=== PATIENT | female | born 1985 | race Asian ===

== ENCOUNTER 2016-12-22 16:48 | Emergency (ER) | payer OTHER ==
[2016-12-22 17:27] LABS: BASOPHIL% 0.3 % (0-2.5); EOSINOPHIL# 0.1 X10e3 (0-0.7); HEMATOCRIT 34.4 % (35.0-45.0); HEMOGLOBIN 11.4 gm/dL (12.0-16.0); LYMPHOCYTE# 2.1 X10e3 (1.0-3.5); LYMPHOCYTE% 23.6 % (17.0-45.0); MEAN CELL VOLUME 59.7 FL (83-96); MEAN CORPUSCULAR HEMOGLOBIN 19.8 PG (28-34); MEAN CORPUSCULAR HGB CONC 33.2 g/dL (30-36); MEAN PLATELET VOLUME 9.7 FL (6.5-11.5); MONOCYTE# 0.6 X10e3 (0-1.0); MONOCYTE% 6.5 % (3.0-12.0); NEUTROPHIL# 6.1 X10e3 (1.5-7.1); NEUTROPHIL% 68.6 % (40-75); PLATELET COUNT 192 X10e3 (140-420); RED BLOOD COUNT 5.76 X10e (3.90-5.30); RED CELL DISTRIBUTION WIDTH 15.2 % (11.0-15.5); WHITE BLOOD COUNT 8.9 X10e3 (4.0-10.5)
[2016-12-22 17:28] LABS: DIFF IND YES
[2016-12-22 17:46] LABS: URINE SOURCE CLEAN CATCH
[2016-12-22 17:54] LABS: ALBUMIN SERUM 4.7 g/dL (3.5-5.0); ALKALINE PHOSPHATASE 53 U/L (32-92); ALT (SGPT) 18 U/L (10-40); AST (SGOT) 20 U/L (10-42); BILIRUBIN, DIRECT 0.1 mg/dL (0.0-0.2); BILIRUBIN,INDIRECT 0.7 mg/dL (0.0-0.9); BILIRUBIN,TOTAL 0.8 mg/dL (0.2-2.0); BLOOD UREA NITROGEN 12 mg/dL (9-23); CALCIUM SERUM 8.9 mg/dL (8.4-10.2); CARBON DIOXIDE 23 mmol/L (22-31); CHLORIDE 102 mmol/L (100-111); CREATININE SERUM 0.5 mg/dL (0.6-1.4); GLOM FILT RATE Estimated ABOVE60 mL/min (>60); GLUCOSE FASTING 75 mg/dL (70-110); LIPASE 18 U/L (22-51); POTASSIUM 3.7 mmol/L (3.5-5.1); PROTEIN TOTAL SERUM 8.5 g/dL (6.0-8.3); SODIUM 133 mmol/L (135-145)
[2016-12-22 18:00] LABS: URINE APPEARANCE CLOUDY; URINE BILIRUBIN NEG (NEG); URINE BLOOD NEG (NEG); URINE COLOR DK YELLOW; URINE GLUCOSE NEG (NEG); URINE KETONE 2+ (NEG); URINE LEUKOCYTE ESTERASE TRACE (NEG); URINE NITRATE NEG (NEG); URINE PH 5.5 (5-8); URINE PROTEIN NEG (NEG); URINE SPECIFIC GRAVITY 1.033 (1.003-1.035); URINE UROBILINOGEN 0.2 MG/DL (NEG)
[2016-12-22 18:02] LABS: CULTURE INDICATED? YES; URINE BACTERIA AUWI 2+ (NEGATIVE); URINE SQUAMOUS EPITHELIAL CELL MOD /[HPF]
[2016-12-22 18:18] LABS: PLATELET ESTIMATE NORMAL (NORMAL)
[2016-12-22 18:19] LABS: ANISOCYTOSIS MOD; POIKILOCYTOSIS SL
[2016-12-22 18:20] LABS: TARGET CELLS MOD
== END 2016-12-22 20:46 | disposition home or self-care (01) ==
LOC: CED 16:48
PROVIDERS: Emergency Medicine
DX: O23.11 Infections of bladder in pregnancy, first trimester (principal); Z98.890 Other specified postprocedural states
CPT/HCPCS: 36415; 80048; 80076; 81003; 83690; 84703; 85025; 87086; 96361; 96374; 96375; 99284; J2550

== ENCOUNTER 2017-01-18 11:35 | Emergency (ER) | payer OTHER ==
[2017-01-18 11:31] LABS: URINE SOURCE CLEAN CATCH
[2017-01-18 11:43] LABS: URINE APPEARANCE CLEAR; URINE BILIRUBIN NEG (NEG); URINE BLOOD NEG (NEG); URINE COLOR YELLOW; URINE GLUCOSE NEG (NEG); URINE KETONE 3+ (NEG); URINE LEUKOCYTE ESTERASE NEG (NEG); URINE NITRATE NEG (NEG); URINE PROTEIN 1+ (NEG); URINE SPECIFIC GRAVITY 1.023 (1.003-1.035)
[2017-01-18 11:46] LABS: CULTURE INDICATED? YES; URINE BACTERIA AUWI 1+ (NEGATIVE); URINE SQUAMOUS EPITHELIAL CELL FEW /[HPF]
[2017-01-18 12:06] LABS: BASOPHIL% 0.3 % (0-2.5); EOSINOPHIL% 0.4 % (0.0-7.0); HEMATOCRIT 37.4 % (35.0-45.0); LYMPHOCYTE# 1.3 X10e3 (1.0-3.5); LYMPHOCYTE% 17.1 % (17.0-45.0); MEAN CELL VOLUME 61.8 FL (83-96); MEAN CORPUSCULAR HEMOGLOBIN 19.8 PG (28-34); MEAN CORPUSCULAR HGB CONC 32.1 g/dL (30-36); MEAN PLATELET VOLUME 9.7 FL (6.5-11.5); MONOCYTE# 0.5 X10e3 (0-1.0); MONOCYTE% 6.6 % (3.0-12.0); NEUTROPHIL# 5.6 X10e3 (1.5-7.1); NEUTROPHIL% 75.6 % (40-75); PLATELET COUNT 194 X10e3 (140-420); RED BLOOD COUNT 6.04 X10e (3.90-5.30); RED CELL DISTRIBUTION WIDTH 16.4 % (11.0-15.5); WHITE BLOOD COUNT 7.3 X10e3 (4.0-10.5)
[2017-01-18 12:07] LABS: DIFF IND YES
[2017-01-18 12:29] LABS: ANISOCYTOSIS SL; HYPOCHROMIA MOD; PLATELET ESTIMATE NORMAL (NORMAL)
[2017-01-18 12:30] LABS: ALBUMIN SERUM 4.8 g/dL (3.5-5.0); BILIRUBIN, DIRECT 0.3 mg/dL (0.0-0.2); BILIRUBIN,INDIRECT 1.1 mg/dL (0.0-0.9); BILIRUBIN,TOTAL 1.4 mg/dL (0.2-2.0); CALCIUM SERUM 9.1 mg/dL (8.4-10.2); CREATININE SERUM 0.5 mg/dL (0.6-1.4); PROTEIN TOTAL SERUM 8.7 g/dL (6.0-8.3); SCHISTOCYTES PRESENT; SPHEROCYTE SL
== END 2017-01-18 13:06 | disposition home or self-care (01) ==
LOC: CED 11:35
PROVIDERS: Emergency Medicine
DX: O21.0 Mild hyperemesis gravidarum (principal)
CPT/HCPCS: 36415; 80048; 80076; 81003; 83690; 85025; 87086; 96361; 96374; 99284; J2405